=== PATIENT | female | born 1960 | race Caucasian/White ===

== ENCOUNTER 2016-12-05 00:07 | Emergency (ER) | payer MEDICAID ==
[~2016-12-05] VITALS: Ht 162.6 cm; Wt 106.6 kg
[2016-12-05 00:22] VITALS: BP 153/78
[2016-12-05] MEDS ORDERED: DEXAMETHASONE SOD PHOSPHATE 10 MG/ML VIAL ONE (00:47)
[2016-12-05] MEDS ORDERED: MORPHINE SULFATE INJ 4 MG/ML DISP.SYRIN ONE (00:47)
[2016-12-05] MEDS ORDERED: MORPHINE SULFATE INJ 2 MG/ML DISP.SYRIN IM ONE (01:00)
[2016-12-05] MEDS ORDERED: DEXAMETHASONE SOD PHOSPHATE 4 MG/ML VIAL IM ONE (01:00)
== END 2016-12-05 01:52 | disposition home or self-care (01) ==
LOC: ER 00:10
DX: J02.8 Acute pharyngitis due to other specified organisms (principal); C50.919 Malignant neoplasm of unspecified site of unspecified female breast; Z88.2 Allergy status to sulfonamides
CPT/HCPCS: 86403-TC; 87070-TC; A4606; J1100; J2270; Z7610

== ENCOUNTER 2016-12-06 16:18 | Emergency (ER) | payer MEDICAID ==
[~2016-12-06] VITALS: Ht 175.3 cm; Wt 95.3 kg
[2016-12-06 16:21] VITALS: BP 126/81
== END 2016-12-06 18:25 | disposition home or self-care (01) ==
LOC: ER 16:20
DX: J02.9 Acute pharyngitis, unspecified (principal); Z85.3 Personal history of malignant neoplasm of breast; Z88.2 Allergy status to sulfonamides; Z88.6 Allergy status to analgesic agent
CPT/HCPCS: A4606; Z7610